=== PATIENT | female | born 1990 | race Caucasian/White ===

== ENCOUNTER → 2021-05-22 | Outpatient (CLI) | payer SELFPAY | END | disposition home or self-care (01) | LOC: LAB SHORT 20:18 | DX: Z09 Encounter for follow-up examination after completed treatment for conditions other than malignant neoplasm (principal); Z86.59 Personal history of other mental and behavioral disorders | CPT/HCPCS: 87086 ==

== ENCOUNTER 2021-06-10 17:57 | Emergency (ER) | payer OTHER ==
[~2021-06-10] VITALS: Ht 165.1 cm; Wt 59.0 kg
[2021-06-10] MEDS ORDERED: ONDA4ODT MM (18:28)
[2021-06-10] MEDS ORDERED: BENZ100A PO (18:28)
[2021-06-10] MEDS ORDERED: PROMETHAZINE12.5 M1 PO (18:59)
== END 2021-06-10 18:40 | disposition home or self-care (01) ==
LOC: ER 17:57
DX: U07.1 COVID-19 (principal); F17.200 Nicotine dependence, unspecified, uncomplicated
CPT/HCPCS: 99284

== ENCOUNTER 2021-06-19 13:49 | Emergency (ER) | payer OTHER ==
[~2021-06-19] VITALS: Ht 165.1 cm; Wt 56.7 kg
[~2021-06-19 13:49] MED LIST: BENZ100A PO; ONDA4ODT MM; PROMETHAZINE12.5 M1 PO
[2021-06-19] MEDS ORDERED: ALBU90OI INH (14:53)
[2021-06-19] MEDS ORDERED: ELIQUIS5 M2 PO (14:53)
== END 2021-06-19 15:00 | disposition home or self-care (01) ==
LOC: ER 13:49
DX: U07.1 COVID-19 (principal); Z76.0 Encounter for issue of repeat prescription; F17.200 Nicotine dependence, unspecified, uncomplicated; Z88.0 Allergy status to penicillin; Z91.040 Latex allergy status; Z91.048 Other nonmedicinal substance allergy status; J45.909 Unspecified asthma, uncomplicated
CPT/HCPCS: 87081; 87430; 99284